=== PATIENT | male | born 1990 | race Caucasian/White ===

== ENCOUNTER 2024-09-30 19:50 | Emergency (ER) | payer MEDICAID, SELFPAY ==
[2024-09-30 19:56] VITALS: BP 128/71; PULSE 68; TEMP 36.8; O2SAT 97; BMI 21.7
--- NOTE | 2024-09-30 20:28 | ED.GENADULT ---
HPI - General Adult General Chief complaint: Skin/Abscess/Foreign Body Stated complaint: itching all over Time Seen by Provider: 09/30/24 20:02 History of Present Illness HPI narrative: Itching for 5 days, generalized itching. Location of itching varies. Now noticed the itching inside his ears and tongue and ears. No rash is present. Otherwise healthy. Mild headache. Recent treatment with Amoxicillin for a tooth infection. Infection has cleared 34-year-old man presenting to the emergency depart with concern itching all over. This has been present for about 5 days. Seems to migrate. Even noting it now to include inside ears and tongue. This Is perhaps more concerning. Has not had a clear rash. Did receive amoxicillin recently for a dental infection. This course has been completed. Cannot seem to identify any other exposure. Here with significant other; they were traveling recently. Generally healthy. Related Data Home Medications ?Medication ?Instructions ?Recorded ?Confirmed No Known Home Medications 09/30/24 09/30/24 Allergies Allergy/AdvReac Type Severity Reaction Status Date / Time No Known Drug Allergies Allergy Verified 09/16/24 14:04 Review of Systems Status of ROS: Reports: 6 or more systems reviewed and unremarkable except as noted in History and below [facility] Medical History Dental infection ?K04.7 - Periapical abscess without sinus (ICD-10) Pitted keratolysis ?L08.89 - Other specified local infections of the skin and subcutaneous tissue (ICD-10) Social History Smoking Status: Never smoker Second hand tobacco smoke exposure: No How often do you have a drink containing alcohol: never AUDIT-C Alcohol total score: 0 Non-prescribed substance use: denies use Exam Narrative: Exam Narrative: Pleasant. Appears concerned. Occasionally rubbing an area of skin, including left leg. Breathing easily. Lungs appear clear. There is no stridor. Oropharynx without lesions. There are some areas of faint erythema on the skin I think from rubbing/scratching. No blisters. No jaundice. No scleral icterus. Const: Vital Signs, click to edit/add: Vital Signs - 24 hr 09/30/24 19:56 Temperature 98.2 F Pulse Rate [Pulse Oximeter] 68 Blood Pressure [Ri ght Upper Arm] 128/71 Pulse Oximetry 97 Oxygen Delivery Me thod Room Air Documenting provider has reviewed patient's vital signs: yes Course Vital Signs Vital signs: Initial Vital Signs Temperature 98.2 F 09/30/24 19:56 Temperature Source Temporal Artery Scan 09/30/24 19:56 Pulse Rate 68 09/30/24 19:56 Pulse Rhythm Regular 09/30/24 19:56 Blood Pressure 128/71 09/30/24 19:56 Blood Pressure Mean 90 09/30/24 19:56 Blood Pressure Position Sitting 09/30/24 19:56 Pulse Oximetry 97 09/30/24 19:56 Oxygen Delivery Method Room Air 09/30/24 19:56 Vital Signs Temperature 98.2 F 09/30/24 19:56 Pulse Rate 68 09/30/24 19:56 Blood Pressure 128/71 09/30/24 19:56 Pulse Oximetry 97 09/30/24 19:56 Oxygen Delivery Method Room Air 09/30/24 19:56 Temperature 98.2 F 09/30/24 20:56 Pulse Rate 70 09/30/24 20:56 Respiratory Rate 18 09/30/24 20:56 Blood Pressure 118/68 09/30/24 20:56 Pulse Oximetry 97 09/30/24 20:55 Oxygen Delivery Method Room Air 09/30/24 20:55 Medical Decision Making MDM Narrative Medical decision making narrative: Unclear cause to this pleuritis. May have been onset or departure of viral illness. Lingering amoxicillin effect? No concerning signs or symptoms otherwise. I think will need to focus on symptom relief. Recommending diphenhydramine and course of prednisone at the moment. See patient discharge plan for further discussion If you wanted to try [id number] options, I would try diphenhydramine as probably the most effective. This can be sedating. Another option would be antihistamines like loratadine or fexofenadine. Could take diphenhydramine then in the evenings. Cooling packs can help. Menthol containing gels can be helpful. Hydrocortisone cream is usually most effective but when occurring diffusely and unpredictably in location; tough to keep up with. Prednisone would be a standard treatment. I can prescribe you some from [facility] (I would take a 5 day course. I have written for extra prednisone however if these symptoms linger, you have more available) You might consider dividing the dose in this case 20 mg in the morning and 20 mg in the afternoon as sometimes I notice that the anti-itch effect seems to fade over the course of the day. Feel free to take 40 mg tonight. You can combine this with antihistamines as mentioned above as well. If not improved in a week, would be seen. Also of course be seen for any indication of throat swelling or difficulty breathing. Discharge Plan Discharge Clinical Impression: Itching Patient Disposition: Home, Self-Care Condition: Stable Additional Instructions: If you wanted to try [id number] options, I would try diphenhydramine as probably the most effective. This can be sedating. Another option would be antihistamines like loratadine or fexofenadine. Could take diphenhydramine then in the evenings. Cooling packs can help. Menthol containing gels can be helpful. Hydrocortisone cream is usually most effective but when occurring diffusely and unpredictably in location; tough to keep up with. Prednisone would be a standard treatment. I can prescribe you some from [facility] (I would take a 5 day course. I have written for extra prednisone however if these symptoms linger, you have more available) You might consider dividing the dose in this case 20 mg in the morning and 20 mg in the afternoon as sometimes I notice that the anti-itch effect seems to fade over the course of the day. Feel free to take 40 mg tonight. You can combine this with antihistamines as mentioned above as well. If not improved in a week, would be seen. Also of course be seen for any indication of throat swelling or difficulty breathing. Prescriptions: No Action No Known Home Medications Follow Up/Referrals: Provider,Not a Local [Primary Care Provider] - Stand Alone Forms: [facility] Info Instructions
[2024-09-30 20:55] VITALS: BP 118/68; PULSE 70; RESP 18; TEMP 36.8; O2SAT 97
[2024-09-30 20:56] VITALS: BP 118/68; PULSE 70; RESP 18; TEMP 36.8
== END 2024-09-30 20:57 | disposition home or self-care (01) ==
PROVIDERS: Emergency Provider Family Medicine
DX: L29.9 Pruritus, unspecified (principal)
CPT/HCPCS: 99283; 99284